=== PATIENT | female | born 1965 | race Caucasian/White ===

== ENCOUNTER 2017-10-13 17:02 | Inpatient (IN) | payer MEDICAID, SELFPAY ==
[2017-10-13] VITALS (24 sets, daily range): BP systolic 115–225; BP diastolic 46–183; PULSE 76–94; RESP 16–27; TEMP 37.2; O2SAT 90–98; BMI 31.6; BMI 45.5
--- NOTE | 2017-10-13 17:16 | RAD_ITS ---
STUDY: X-RAY CHEST REASON FOR EXAM: Female, 51 years old. Shortness breast. TECHNIQUE: Single AP portable view of the chest. COMPARISON: None. FINDINGS: The lungs are well-expanded. There is diffuse perihilar interstitial prominence most marked in the lower lobes. There is no demonstrated pleural abnormality. The heart appears borderline enlarged. Normal mediastinum and erickson. Question mild central vascular prominence. Normal visualized aortic arch and descending thoracic aorta. The thoracic spine is obscured by the mediastinum. Normal visualized ribs, clavicles, and shoulders. There is no demonstrated abnormality of the visualized soft tissue structures of the upper abdomen. RAD/Chest 1 View (Portable) IMPRESSION: Mild vascular congestion. Electronically Signed: Rosalino Anguiano DO at 17:37 EDT Tel [phone], Service support ,
--- NOTE | 2017-10-13 17:16 | EKG12_ITS ---
Test Reason : SOB Blood Pressure : / mmHG Vent. Rate : 087 BPM Atrial Rate : 087 BPM P-R Int : 128 ms QRS Dur : 092 ms QT Int : 370 ms P-R-T Axes : 055 -03 115 degrees QTc Int : 445 ms Normal sinus rhythm Left ventricular hypertrophy with repolarization abnormality Abnormal ECG Confirmed by MASHA WHITE ([id number]), technical writer and editor AMANDA ABREU ([id number]) on 10/18/2017 10:42:48 AM Referred By: Ramon Rahman Confirmed By:MASHA WHITE
[2017-10-13 17:45] LABS: Absolute Lymphocyte Count 3.38 X10^3/ul (0.83-4.51); Absolute Neutrophil Count 4.5 X10^3/uL (2.0-7.7); Basophil# 0.03 X10^3/uL; Basophil% 0.3 % (0-1); Eosinophil# 0.26 X10^3/uL; Eosinophils% 2.9 % (0-5); Hematocrit 44.4 % (37-47); Hemoglobin 14.3 g/dl (12.0-15.0); Lymphocyte # 3.38 X10^3/ul (4.0); Lymphocyte % 37.6 % (19-41); Mean Corp Hgb Conc 32.2 g/gl (32-36); Mean Corpuscular Hgb 30.1 pg (27.0-32.0); Mean Corpuscular Volume 93.5 fL (81-99); Mean Platelet Vol. 9.6 fl (6.2-12.0); Monocyte# 0.78 X10^3/uL; Monocyte% 8.7 % (0-10); Neutrophil # 4.53 X10^3/uL (2.7-7.7); Neutrophil % 50.4 % (47-70); Platelet Count 195 K/mm3 (150-450); RBC Distribution Width CV 13.8 % (11.6-14.6); RBC Distribution Width SD 46.8 fl (35.1-43.9); Red Blood Count 4.75 M/mm3 (4.2-5.4)
[2017-10-13 17:46] LABS: POSITIVE COUNT NO; POSITIVE DIFFERENTIAL NO; POSITIVE MORPHOLOGY NO
[2017-10-13] MEDS: Aspirin 81 MG TAB.CHEW 324 MG PO (17:58)
--- NOTE | 2017-10-13 18:01 | PCM.CONS.C ---
Reason for Consult Date of Consultation: 10/13/17 Reason for Consultation: Evaluation of abnormal EKG and shortness of breath. History of Present Illness: The patient is a 51 year old F with no previous cardiac history other than hypertension who says that she has been getting progressively and increasingly short of breath over the last few weeks. She has not followed up with any physician recently. She says that she was taken off on her blood pressure medications by her physician in [place]. Today while trying to walk she got more short of breath and called emergency medical squad. At that time they got to her have blood pressure was noted to be in excess of 240 mmHg systolic. She was brought to the emergency room an EKG was done which demonstrated some T-wave inversions cardiology was called from the emergency room to render an opinion on the EKG. She denies any chest pain or paroxysmal nocturnal dyspnea or pedal edema she does have shortness of breath which she has ascribed to asthma. She however is not on any inhalers. She has no neck arm or jaw discomfort to suggest angina. [] Past Medical History Allergies/Adverse Reactions: Allergies codeine Allergy (Verified 10/13/17 17:58) Chest tightness Penicillins [PCN] Allergy (Verified 10/13/17 17:58) Chest tightness Surgical History: appendectomy, hysterectomy - partial Lives: Alone Smoking Status: Current every day smoker Alcohol: None Drugs: None Review of Systems - Review of Systems General: Denies: Fever, Night Sweats, Fatigue Cardiovascular: Reports: Shortness of Breath, Shortness of Breath at Rest, Shortness of Breath with Exertion. Denies: Chest Discomfort, Orthopnea, PND, Peripheral Edema, Palpitations, Lightheadedness, Dizziness, Near Syncope, Syncope Respiratory: Reports: Shortness of Breath. Denies: Cough, Sputum Production, Hemoptysis Gastrointestinal: Denies: Hematemesis, Hematochezia, Melena Genitourinary: Denies: Dysuria, Hematuria Skin: Denies: Rash Psychiatric: Reports: Anxiety Subjectve: Middle aged lady in no distress but mildly labored breathing Objective: Vital Signs Temp Pulse Resp BP Pulse Ox 99.0 F 94 18 218/122 H 98 10/13/17 17:45 10/13/17 17:45 10/13/17 17:45 10/13/17 17:45 10/13/17 17:45 Oxygen Delivery Method Room Air Weight: 208 lb Body Mass Index (BMI) 31.6 General: Awake, Alert, Oriented x 3 HEENT: PERRL, EOMI, Sclera Non Icteric Neck: Supple, Good ROM, No Lymph Node Enlargement Lungs: Inspiratory Wheezes - Nolan Cardiovascular: Regular Rhythm, Normal S1, Normal S2, No Murmurs, No Rubs, No Gallops, Positive S4 Vascular: No Carotid Bruits, Normal Femoral Pulses, Normal Radial Pulses, Normal Dorsalis Pedal Pulse, Normal Posterior Tibial Pulses Abdomen: Bowel Sounds Present, Soft, Non Tender, No HSM, No Organomegaly Extremities: No Cyanosis, No Clubbing, No edema Neurological: No Focal Motor or Sensory Deficit Psych/Mental Status: Appropriate 10/13/17 17:36: WBC 9.0, RBC 4.75, Hgb 14.3, Hct 44.4, MCV 93.5, MCH 30.1, MCHC 32.2, RDW 13.8, RDW Differential 46.8 H, Plt Count 195, MPV 9.6, Immature Gran % (Auto) 0.100, Neut % (Auto) 50.4, Lymph % (Auto) 37.6, [place] % (Auto) 8.7, Eos % (Auto) 2.9, Baso % (Auto) 0.3, Absolute Neuts (auto) 4.5, Total Counted Not Reportable Rhythm: EKG: Normal sinus rhythm with evidence of left ventricular hypertrophy and repolarization changes with T-wave inversion noted in 1 and aVL Assessment/Plan 1. Hypertensive urgency. The patient presents with marked shortness of breath and marked hypertension with EKG changes consistent with repolarization. My concern is that this is secondary to long-standing untreated high blood pressure. She may also be developing mild heart failure with respect to the above. My recommendations will be as follows: Intravenous nitroglycerin for preload and afterload reduction Intravenous Lasix Will start on ISABELLA inhibitor with lisinopril 20 mg twice a day Obtain an echocardiogram in a.m. to assess left ventricular function Obtain serial cardiac enzymes to exclude myocardial ischemia Obtain natruretic peptide level Depending on the findings of the above further recommendations will be made. She certainly may need additional blood pressure medications for optimal blood pressure control. Would need to further risk stratify her with a lipid profile in a.m.
[2017-10-13 18:08] LABS: Anion Gap 7 (5-15); BUN 16 mg/dL (7-18); BUN/Creat Ratio 14.5 RATIO (10-20); Chloride 106 mmol/L (98-107); EST Glomerular Filtration Rate 56 mL/min (>60); Est Glom Filt Rate - Afr Amer 68 mL/min (>60); Estimated Creatinine Clearance 62.41 ml/min; Glucose 164 mg/dL (74-106); Potassium 3.8 mmol/L (3.5-5.1); Sodium Level 136 mmol/L (136-145)
--- NOTE | 2017-10-13 18:08 | CON.PCM_ITS ---
Reason for Consult Date of Consultation: 10/13/17 Reason for Consultation: Evaluation of abnormal EKG and shortness of breath. History of Present Illness: The patient is a 51 year old F with no previous cardiac history other than hypertension who says that she has been getting progressively and increasingly short of breath over the last few weeks. She has not followed up with any physician recently. She says that she was taken off on her blood pressure medications by her physician in [place]. Today while trying to walk she got more short of breath and called emergency medical squad. At that time they got to her have blood pressure was noted to be in excess of 240 mmHg systolic. She was brought to the emergency room an EKG was done which demonstrated some T- wave inversions cardiology was called from the emergency room to render an opinion on the EKG. She denies any chest pain or paroxysmal nocturnal dyspnea or pedal edema she does have shortness of breath which she has ascribed to asthma. She however is not on any inhalers. She has no neck arm or jaw discomfort to suggest angina. [] Past Medical History Allergies/Adverse Reactions: Allergies codeine Allergy (Verified 10/13/17 17:58) Chest tightness Penicillins [PCN] Allergy (Verified 10/13/17 17:58) Chest tightness Surgical History: appendectomy, hysterectomy - partial Lives: Alone Smoking Status: Current every day smoker Alcohol: None Drugs: None Review of Systems - Review of Systems General: Denies: Fever, Night Sweats, Fatigue Cardiovascular: Reports: Shortness of Breath, Shortness of Breath at Rest, Shortness of Breath with Exertion. Denies: Chest Discomfort, Orthopnea, PND, Peripheral Edema, Palpitations, Lightheadedness, Dizziness, Near Syncope, Syncope Respiratory: Reports: Shortness of Breath. Denies: Cough, Sputum Production, Hemoptysis Gastrointestinal: Denies: Hematemesis, Hematochezia, Melena Genitourinary: Denies: Dysuria, Hematuria Skin: Denies: Rash Psychiatric: Reports: Anxiety Subjectve: Middle aged lady in no distress but mildly labored breathing Objective: Vital Signs Temp Pulse Resp BP Pulse Ox 99.0 F 94 18 218/122 H 98 10/13/17 17:45 10/13/17 17:45 10/13/17 17:45 10/13/17 17:45 10/13/17 17:45 Oxygen Delivery Method Room Air Weight: 208 lb Body Mass Index (BMI) 31.6 General: Awake, Alert, Oriented x 3 HEENT: PERRL, EOMI, Sclera Non Icteric Neck: Supple, Good ROM, No Lymph Node Enlargement Lungs: Inspiratory Wheezes - Nolan Cardiovascular: Regular Rhythm, Normal S1, Normal S2, No Murmurs, No Rubs, No Gallops, Positive S4 Vascular: No Carotid Bruits, Normal Femoral Pulses, Normal Radial Pulses, Normal Dorsalis Pedal Pulse, Normal Posterior Tibial Pulses Abdomen: Bowel Sounds Present, Soft, Non Tender, No HSM, No Organomegaly Extremities: No Cyanosis, No Clubbing, No edema Neurological: No Focal Motor or Sensory Deficit Psych/Mental Status: Appropriate 10/13/17 17:36: WBC 9.0, RBC 4.75, Hgb 14.3, Hct 44.4, MCV 93.5, MCH 30.1, MCHC 32.2, RDW 13.8, RDW Differential 46.8 H, Plt Count 195, MPV 9.6, Immature Gran % (Auto) 0.100, Neut % (Auto) 50.4, Lymph % (Auto) 37.6, [place] % (Auto) 8.7, Eos % (Auto) 2.9, Baso % (Auto) 0.3, Absolute Neuts (auto) 4.5, Total Counted Not Reportable Rhythm: EKG: Normal sinus rhythm with evidence of left ventricular hypertrophy and repolarization changes with T-wave inversion noted in 1 and aVL Assessment/Plan 1. Hypertensive urgency. The patient presents with marked shortness of breath and marked hypertension with EKG changes consistent with repolarization. My concern is that this is secondary to long-standing untreated high blood pressure. She may also be developing mild heart failure with respect to the above. My recommendations will be as follows: * Intravenous nitroglycerin for preload and afterload reduction * Intravenous Lasix * Will start on ISABELLA inhibitor with lisinopril 20 mg twice a day * Obtain an echocardiogram in a.m. to assess left ventricular function * Obtain serial cardiac enzymes to exclude myocardial ischemia * Obtain natruretic peptide level * Depending on the findings of the above further recommendations will be made. She certainly may need additional blood pressure medications for optimal blood pressure control. * Would need to further risk stratify her with a lipid profile in a.m.
--- NOTE | 2017-10-13 18:10 | ECHOD_ITS ---
Reason For Study: SOB Procedure This was a 2D Doppler, Color Flow transthoracic echocardiogram. Exam performed portable in ICU/CCU. Left Ventricle Moderate concentric left ventricular hypertrophy. The estimated ejection fraction is 65 %. Stage 1 diastolic dysfunction. No regional wall motion abnormalities noted. Right Ventricle Mildly dilated right ventricle. Normal systolic function. Atria Normal left atrium. Normal right atrium. Probable secondum atrial septal defect. Mitral Valve The mitral valve is structurally normal. No prolapse or stenosis seen. Tricuspid Valve Normal tricuspid valve. Mild (1+) tricuspid valve insufficiency. Right ventricular systolic pressure estimated to be 53 mmHg. Moderate pulmonary hypertension. Aortic Valve Trisinus/trileaflet aortic valve. Mild diffuse aortic valve thickening. Mild (1+) aortic valve insufficiency. Pulmonic Valve Normal pulmonic valve. Great Vessels Normal aortic root. Normal arch. Normal inferior vena cava. Inferior vena cava collapse with sniff. Pericardium/Pleural No pericardial effusion. MMode/2D Measurements & Calculations LVIDd: 4.3 cm IVSd: 1.6 cm Ao root diam: 2.9 cm LVIDs: 2.9 cm LVPWd: 1.5 cm LA dimension: 4.3 cm RVDd: 3.8 cm FS: 33.3 % LAV(MOD-bp): 69.4 ml LA A4 area: 20.6 cm2 RA A4 area: 16.8 cm2 LAV(MOD-bp) Indexed: 34.9 ml/m2 LAV(MOD-sp2): 77.2 ml LAV(MOD-sp4): 61.6 ml Doppler Measurements & Calculations MV E max dwight: 78.6 cm/sec Lat Peak E' Dwight: 5.5 cm/sec Med Peak E' Dwight: 3.7 cm/sec MV A max dwight: 60.1 cm/sec E/E' lat: 14.3 E/E' med: 21.0 MV E/A: 1.3 Ao V2 max: 174.5 cm/sec AI max dwight: 444.1 cm/sec LV V1 max: 138.8 cm/sec Ao max P.2 mmHg AI max P.9 mmHg LV V1 max P.7 mmHg AI dec slope: 246.4 cm/sec2 AI P1/2t: 527.8 msec PA V2 max: 182.8 cm/sec TR max dwight: 346.8 cm/sec TR max P.1 mmHg Interpretation Summary Moderate concentric left ventricular hypertrophy. The estimated ejection fraction is 65 %. Stage 1 diastolic dysfunction. Mildly dilated right ventricle. Probable secondum atrial septal defect with L to R shunt. Mild (1+) tricuspid valve insufficiency. Right ventricular systolic pressure estimated to be 53 mmHg. Moderate pulmonary hypertension. Mild (1+) aortic valve insufficiency. There is no comparison study available. Ordering Physician: Romain Espinosa Referring Physician: Ramon Rahman Performed By: Kerry Bejarano RDCS
--- NOTE | 2017-10-13 18:29 | ED.VISSUMM ---
- ER Visit Summary Date of Service: 10/13/17 Chief Complaint: Shortness of breath with activity History of Present Illness: The patient is a 51 F who has no past medical history on no medication presents with shortness of breath. She had increased shortness of the past 1-2 weeks. Upon further questions determined that she has chest tightness with activity that goes away after 5-10 minutes of rest. She states she has not seen a doctor in 1 month. She does smoke. She does not know how much. She rolls her own cigarettes. She denies fever, chills night sweats. Eyes ocular, visual or auditory symptoms. She denies nausea, vomiting diarrhea. She denies dysuria, frequency, urgency or hematuria. She denies any back pain. She denies symptoms of claudication. She denies any neurologic symptoms. She does report polydipsia and polyuria for the past several weeks. She denies blurred vision. Patient reports midsternal chest discomfort with radiation to both shoulders with dyspnea that is alleviated after she stops her activity. She reports she has had symptoms for 1-2 weeks. Physical Examination: Patient appears slightly tachypneic. Blood pressures 221/121. Head is atraumatic normocephalic. Pupils are equal round reactive. Extraocular muscles are intact. TMs are pearly white with landmarks noted. Nares patent with no drainage. Posterior pharynx without erythema or exudate. Uvula is midline. There is no dysphonia or dysphasia. Trachea is midline. There is no stridor with auscultation of the neck. Heart is regular without murmur, gallop or rub. S1 and S2 are normal. Lungs are clear to auscultation with good movement of air bilaterally. Abdomen soft flabby nontender. There is no asymmetry, swelling, discoloration, leg vein distention, palpable cords or tenderness along the distribution of the deep venous system. Test Results: EKG reveals a sinus rhythm with LVH and strain pattern. Concern for possible ischemia. Portable chest x-ray reveals cardiomegaly and mild congestion. CBC is normal. Electro panels marked for a creatinine of 1.10 and glucose of 164. Troponin is 0.066. Emergency Department Course and Treatment: To evaluate patient's exertional dyspnea and chest pain EKG, chest x-ray appropriate blood work was obtained. This may be secondary to hypertension. After discussion/consultation with Dr. Espinosa she was placed on a nitroglycerin drip. He requested no anticoagulation with elevated blood pressure. He did receive aspirin. Treatment Plan: Continue care and evaluation Disposition: PCU stepdown Impression: 1. Exertional chest pain and dyspnea 2. Hypertensive urgency 3. Cardiomegaly and mild CHF new finding 4. Hyperglycemia, new onset diabetes This note was generated with [employer] dictation software. It may contain incorrect words, spelling, and punctuation that were not noted in review of the chart prior to signing ED Disposition - Plan for ED Patient: Chief Complaint: Shortness of Breath Referrals: Care Physician,No Primary [Primary Care Provider] -
--- NOTE | 2017-10-13 18:35 | ED.DCSUM_ITS ---
- ER Visit Summary Date of Service: 10/13/17 Chief Complaint: Shortness of breath with activity History of Present Illness: The patient is a 51 F who has no past medical history on no medication presents with shortness of breath. She had increased shortness of the past 1-2 weeks. Upon further questions determined that she has chest tightness with activity that goes away after 5-10 minutes of rest. She states she has not seen a doctor in 1 month. She does smoke. She does not know how much. She rolls her own cigarettes. She denies fever, chills night sweats. Eyes ocular, visual or auditory symptoms. She denies nausea, vomiting diarrhea. She denies dysuria, frequency , urgency or hematuria. She denies any back pain. She denies symptoms of claudication. She denies any neurologic symptoms. She does report polydipsia and polyuria for the past several weeks. She denies blurred vision. Patient reports midsternal chest discomfort with radiation to both shoulders with dyspnea that is alleviated after she stops her activity. She reports she has had symptoms for 1-2 weeks. Physical Examination: Patient appears slightly tachypneic. Blood pressures 221/ 121. Head is atraumatic normocephalic. Pupils are equal round reactive. Extraocular muscles are intact. TMs are pearly white with landmarks noted. Nares patent with no drainage. Posterior pharynx without erythema or exudate. Uvula is midline. There is no dysphonia or dysphasia. Trachea is midline. There is no stridor with auscultation of the neck. Heart is regular without murmur, gallop or rub. S1 and S2 are normal. Lungs are clear to auscultation with good movement of air bilaterally. Abdomen soft flabby nontender. There is no asymmetry, swelling, discoloration, leg vein distention, palpable cords or tenderness along the distribution of the deep venous system. Test Results: EKG reveals a sinus rhythm with LVH and strain pattern. Concern for possible ischemia. Portable chest x-ray reveals cardiomegaly and mild congestion. CBC is normal. Electro panels marked for a creatinine of 1.10 and glucose of 164. Troponin is 0.066. Emergency Department Course and Treatment: To evaluate patient's exertional dyspnea and chest pain EKG, chest x-ray appropriate blood work was obtained. This may be secondary to hypertension. After discussion/consultation with Dr. Espinosa she was placed on a nitroglycerin drip. He requested no anticoagulation with elevated blood pressure. He did receive aspirin. Treatment Plan: Continue care and evaluation Disposition: PCU stepdown Impression: 1. Exertional chest pain and dyspnea 2. Hypertensive urgency 3. Cardiomegaly and mild CHF new finding 4. Hyperglycemia, new onset diabetes This note was generated with [employer] dictation software. It may contain incorrect words, spelling, and punctuation that were not noted in review of the chart prior to signing ED Disposition - Plan for ED Patient: Chief Complaint: Shortness of Breath Referrals: Care Physician,No Primary [Primary Care Provider] -
[2017-10-13] MEDS: Enalaprilat 1.25 MG/ML Vial 0.625 MG IV (19:59)
[2017-10-13] MEDS: Furosemide 20 MG/2 ML VIAL IV (19:59)
--- NOTE | 2017-10-13 20:41 | EKG12_ITS ---
Test Reason : HTN Blood Pressure : / mmHG Vent. Rate : 077 BPM Atrial Rate : 077 BPM P-R Int : 136 ms QRS Dur : 080 ms QT Int : 396 ms P-R-T Axes : 059 022 114 degrees QTc Int : 448 ms Normal sinus rhythm Septal infarct , age undetermined ST & T wave abnormality, consider lateral ischemia Abnormal ECG No previous ECGs available Confirmed by MASHA WHITE ([id number]), features editor AMANDA ABREU ([id number]) on 10/18/2017 3:04:46 PM Referred By: Ramon Rahman Confirmed By:MASHA WHITE
[2017-10-13 22:10] LABS: M R Staph aureus DNA By PCR Negative (Negative); Probe Check PASS; Specimen Processing Control PASS
[2017-10-13] MEDS: Zolpidem Tartrate 5 MG Tablet PO (22:13)
[2017-10-13] MEDS: Heparin Injection (Vial) 5,000 UNIT/ML VIAL 5000 UNIT SC (22:14)
[2017-10-13] MEDS: Lisinopril 20 MG Tablet PO (22:14)
--- NOTE | 2017-10-13 22:28 | HP.PCM_ITS ---
Problem List (1) Chest pain Status: Acute Qualifiers: Chest pain type: chest pain due to myocardial ischemia Ischemic chest pain type: unspecified angina pectoris type Qualified Code(s): I25.9 - Chronic ischemic heart disease, unspecified (2) Hypertensive emergency Status: Acute History of Present Illness Date of Admission: 10/13/17 Chief Complaint: Chest pain. Patient is a 51 yo wf with no known medical problems in the past, presents with exertional chest pain with dyspnea for about 1 week, gradually worsening. She has chest tightness with mild exertion, that relieved by rest. The pain does not radiate, but she has dyspnea. She denied of any diaphoresis, dizziness, nausea, or palpitations. She has no recent medical follow up, but she denied of any previous problems with any medical problems. However, she is a poor historian. Her BP was 221/121 on arrival. EKG showed LVH with early repolarization. CXR showed mild edema and cardiomegaly. Troponin was elevated slightly to 0.066. Past Medical History Allergies codeine Allergy (Verified 10/13/17 20:33) Chest tightness Penicillins [PCN] Allergy (Verified 10/13/17 20:33) Chest tightness Home Medications: Ambulatory Orders Medication Instructions Recorded Albuterol Inhaler [Ventolin Hfa 1 puff INHALATION Q4H PRN PRN 10/13/17 (SP)] Surgical History: appendectomy, hysterectomy - partial Lives: Alone Smoking Status: Current every day smoker Tobacco Use: Cigarettes Alcohol: None Drugs: None - *Family History Maternal History Items: Diabetes Paternal History Items: Diabetes Review of Systems Comment: ROS: In general: Patient has been in good health, denied of any constitutional symptoms, such as weight loss, or gain, fever, chills, or night sweats. Patient denied of any profound fatigue. HEENT: Unremarkable. Patient denied of any dizziness, chronic headache, blurred vision, double vision, dry mouth, or nasal congestion. CV/respiratory: See HPI. GI: Patient denied any abdominal pain, nausea, vomiting, diarrhea, constipation, melena, or hematochezia. : Patient denied any significant urinary symptoms. Neurology: Unremarkable. There is no history of seizure as an adult. Psychological: Unremarkable. Endocrine: Unremarkable. Musculoskeletal: Unremarkable. VTE Information - Inpt Only VTE Present on Admission: No VTE Mechan Device Prophylaxis: Thigh High ALYSE Hose VTE Pharm Prophylaxis ordered?: Yes Patient Problems: Active and Suspected Problems Chest pain (Acute) Hypertensive emergency (Acute) Objective: In general, patient is a well-nourished and developed adult. HEENT: Head is atraumatic, and normocephalic. Pupils are equal, round, and reactive to light and accommodations. Neck is supple. There is no lymphadenopathy, or thyromegaly. Oral mucosa is pink, and moist. There are no lesions. Heart: Auscultation is normal with regular rhythm and rate. There is no extra heart sounds, or murmurs. S1 and S2 are present. Point of maximal impulse is not displaced. Lungs: Lungs are clear to auscultation bilaterally. There is no wheezing, or crackles. Abdomen: Abdominal wall is non-tender, and non-distended. There is no palpable mass or organomegaly. Normoactive bowel sounds are present. Extremities: There is no cyanosis or clubbing. Peripheral pulses are palpable. There is no edema. Skin: There are no any skin discoloration or lesions. Neurological: CN II - XII are intact. Sensory and motor functions are grossly normal with no obvious deficit. Cerebellar functions are within normal range. Gait was not tested. - Physical Exam Vital Signs Temp Pulse Resp BP Pulse Ox 99.0 F 83 17 204/99 H 93 10/13/17 20:25 10/13/17 22:05 10/13/17 22:05 10/13/17 22:05 10/13/17 22:05 Oxygen Delivery Method Room Air Weight: 188 lb 7.924 oz Body Mass Index (BMI) 35.6 Laboratory Tests Past 24 Hrs 10/13/17 10/13/17 20:40 21:05 Troponin I 0.085 H MRSA (PCR) Negative Diagnostic Data Chest X-Ray 10/13/17 17:16 IMPRESSION: Mild vascular congestion. Electronically Signed: Rosalino Anguiano DO at 17:37 EDT Tel [phone], Service support , Assessment/Plan All Active Problems Chest pain (Acute) Hypertensive emergency (Acute) Patient is a 51 yo wf with no known medical problems in the past, presents with exertional chest pain with dyspnea for about 1 week, gradually worsening. She has chest tightness with mild exertion, that relieved by rest. The pain does not radiate, but she has dyspnea. She denied of any diaphoresis, dizziness, nausea, or palpitations. She has no recent medical follow up, but she denied of any previous problems with any medical problems. Her BP was 221/121 on arrival. EKG showed LVH with early repolarization. CXR showed mild edema and cardiomegaly. Troponin was elevated slightly to 0.066. #1 Hypertensive emergency. She appears to have end-organ involvement with unstable angina and CHF. She likely has prolonged untreated HTN. Trend troponin. Cardiology was consulted. Started on NTG drip. Lasix given. Echo in AM. #2 Elevated glucose. Insulin sliding scale added. Check Hgb A1c. #3 Elevated troponin. See above. VTE ppx: Heparin SQ. GI ppx: PPI po. She is full code. Disposition: TBD. She is from [facility], and she is able to stay until 10/20, but she has no home to go after that date. Code Visit Inpatient E&M: 45419 Init Hosp L3
[2017-10-13 23:02] LABS: BNP,B-Type NATRIURETIC PEPTIDE 196.2 pg/mL (0-100)
[2017-10-13 23:36] LABS: Bedside Glucose 247 mg/dL (70-110)
[2017-10-14] VITALS (49 sets, daily range): BP systolic 107–178; BP diastolic 46–94; PULSE 63–87; RESP 14–24; TEMP 36.8–37.6; O2SAT 88–98
[2017-10-14] MEDS: Heparin Injection (Vial) 5,000 UNIT/ML VIAL 5000 UNIT SC ×2 (06:00→14:56)
[2017-10-14 06:36] LABS: Hematocrit 40.6 % (37-47); Hemoglobin 13.4 g/dl (12.0-15.0); Mean Corpuscular Hgb 30.7 pg (27.0-32.0); Mean Corpuscular Volume 93.1 fL (81-99); Mean Platelet Vol. 9.8 fl (6.2-12.0); Platelet Count 205 K/mm3 (150-450); RBC Distribution Width CV 13.7 % (11.6-14.6); RBC Distribution Width SD 45.5 fl (35.1-43.9); Red Blood Count 4.36 M/mm3 (4.2-5.4); White Blood Count 9.7 K/mm3 (4.4-11.0)
[2017-10-14 06:38] LABS: Scan Indicated on CBC? Y/N NO
[2017-10-14] MEDS: amLODIPine 10 MG Tablet PO (06:47)
[2017-10-14] MEDS: Ipratropium/Albuterol Sulfate 3 ML AMPUL.NEB INHALATION ×3 (06:54→14:52)
[2017-10-14 07:00] LABS: Bedside Glucose 178 mg/dL (70-110)
[2017-10-14 07:02] LABS: AST(SGOT) 43 U/L (15-37); Alanine Aminotransfer ALT/SGPT 45 U/L (13-56); Albumin, Serum 2.9 g/dL (3.2-5.0); Alkaline Phosphatase 50 U/L (45-117); Anion Gap 9 (5-15); BUN 16 mg/dL (7-18); BUN/Creat Ratio 15.5 RATIO (10-20); Bilirubin, Direct 0.15 mg/dL (0.00-0.30); Calcium,Total 7.7 mg/dL (8.5-10.1); Chloride 104 mmol/L (98-107); Cholesterol 93 mg/dL (200); Creatinine, Serum 1.03 mg/dL (0.55-1.02); EST Glomerular Filtration Rate 60 mL/min (>60); Est Glom Filt Rate - Afr Amer 73 mL/min (>60); Estimated Creatinine Clearance 49.31 ml/min; Globulin 3.8 g/dL (2.2-4.2); Glucose 170 mg/dL (74-106); High Density Lipoprotein 22 mg/dL; Protein, Total 6.7 g/dL (6.4-8.2); Sodium Level 139 mmol/L (136-145); Thyroid Stim Hormone (TSH) 0.75 uIU/mL (0.358-3.74); Triglycerides 113 mg/dL; Very Low Density Lipoprotein 23 mg/dL (5-40)
--- NOTE | 2017-10-14 07:48 | PCM.PN.CARD ---
Subjectve: Patient seen and evaluated. Appears to be breathing better this morning. Objective: Vital Signs Temp Pulse Resp BP Pulse Ox 99.6 F H 82 20 H 140/92 H 93 10/14/17 07:00 10/14/17 07:00 10/14/17 07:00 10/14/17 07:00 10/14/17 07:00 Oxygen Flow Rate (L/min) 2 Oxygen Delivery Method Room Air Weight: 239 lb 10.279 oz Body Mass Index (BMI) 45.5 Intake and Output for Last 24 Hours 10/12/17 10/13/17 10/14/17 23:59 23:59 23:59 Intake Total 432 / 432 220 / 220 Output Total 1000 / 1000 300 / 300 Balance -568 / -568 -80 / -80 General: Awake, Alert, Oriented x 3 HEENT: PERRL, EOMI, Sclera Non Icteric Neck: Supple, Good ROM, No Lymph Node Enlargement Lungs: Clear to auscultation Cardiovascular: Regular Rhythm, Normal S1, Normal S2, No Murmurs, No Rubs, No Gallops Vascular: No Carotid Bruits, Normal Femoral Pulses, Normal Radial Pulses, Normal Dorsalis Pedal Pulse, Normal Posterior Tibial Pulses Abdomen: Bowel Sounds Present, Soft, Non Tender, No HSM, No Organomegaly Extremities: No Cyanosis, No Clubbing, No edema Neurological: No Focal Motor or Sensory Deficit 10/13/17 21:05: Troponin I 0.085 H 10/13/17 22:20: B-Natriuretic Peptide 196.2 H 10/13/17 23:45: Troponin I 0.078 H 10/14/17 06:05: Sodium 139, Potassium 4.0, Chloride 104, Carbon Dioxide 26.0, Anion Gap 9, BUN 16, Creatinine 1.03 H, Est GFR (MDRD) Af Amer 73, Est GFR (MDRD) Non-Af 60, BUN/Creatinine Ratio 15.5, Glucose 170 H, Calcium 7.7 L, Total Bilirubin 0.90, Direct Bilirubin 0.15, Triglycerides 113, Cholesterol 93, LDL Cholesterol 48, VLDL Cholesterol 23, HDL Cholesterol 22 L 10/14/17 06:05: WBC 9.7, RBC 4.36, Hgb 13.4, Hct 40.6, MCV 93.1, MCH 30.7, MCHC 33.0, RDW 13.7, RDW Differential 45.5 H, Plt Count 205, MPV 9.8 Rhythm: EKG: ECHO: Stress Test: Cardiac Cath: PCI: CT Surgery: Holter monitor: EPS: PPM: CXR: Chest CT Scan: Medical Necessity - Tobacco Use Smoking Status: Current every day smoker Tobacco Use: Cigarettes Assessment/Plan 1. Hypertensive urgency. The patient presents with marked shortness of breath and marked hypertension with EKG changes consistent with repolarization. My concern is that this is secondary to long-standing untreated high blood pressure. My recommendations will be as follows: Intravenous nitroglycerin for preload and afterload reduction and transitioned to oral agents Start hydrochlorothiazide Will start on ISABELLA inhibitor with lisinopril 20 mg twice a day Obtain an echocardiogram in a.m. to assess left ventricular function serial cardiac enzymes done and to indicate some level of myocardial necrosis but not suggestive of unstable angina Her blood pressure appears to be better this morning along with her EKG changes. She is overall feeling better today. Further decisions will be made based on the results of the echocardiogram as well as her response to the oral blood pressure medications.
--- NOTE | 2017-10-14 07:51 | PN.CARD_ITS ---
Subjectve: Patient seen and evaluated. Appears to be breathing better this morning. Objective: Vital Signs Temp Pulse Resp BP Pulse Ox 99.6 F H 82 20 H 140/92 H 93 10/14/17 07:00 10/14/17 07:00 10/14/17 07:00 10/14/17 07:00 10/14/17 07:00 Oxygen Flow Rate (L/min) 2 Oxygen Delivery Method Room Air Weight: 239 lb 10.279 oz Body Mass Index (BMI) 45.5 Intake and Output for Last 24 Hours 10/12/17 10/13/17 10/14/17 23:59 23:59 23:59 Intake Total 432 / 432 220 / 220 Output Total 1000 / 1000 300 / 300 Balance -568 / -568 -80 / -80 General: Awake, Alert, Oriented x 3 HEENT: PERRL, EOMI, Sclera Non Icteric Neck: Supple, Good ROM, No Lymph Node Enlargement Lungs: Clear to auscultation Cardiovascular: Regular Rhythm, Normal S1, Normal S2, No Murmurs, No Rubs, No Gallops Vascular: No Carotid Bruits, Normal Femoral Pulses, Normal Radial Pulses, Normal Dorsalis Pedal Pulse, Normal Posterior Tibial Pulses Abdomen: Bowel Sounds Present, Soft, Non Tender, No HSM, No Organomegaly Extremities: No Cyanosis, No Clubbing, No edema Neurological: No Focal Motor or Sensory Deficit 10/13/17 21:05: Troponin I 0.085 H 10/13/17 22:20: B-Natriuretic Peptide 196.2 H 10/13/17 23:45: Troponin I 0.078 H 10/14/17 06:05: Sodium 139, Potassium 4.0, Chloride 104, Carbon Dioxide 26.0, Anion Gap 9, BUN 16, Creatinine 1.03 H, Est GFR (MDRD) Af Amer 73, Est GFR (MDRD ) Non-Af 60, BUN/Creatinine Ratio 15.5, Glucose 170 H, Calcium 7.7 L, Total Bilirubin 0.90, Direct Bilirubin 0.15, Triglycerides 113, Cholesterol 93, LDL Cholesterol 48, VLDL Cholesterol 23, HDL Cholesterol 22 L 10/14/17 06:05: WBC 9.7, RBC 4.36, Hgb 13.4, Hct 40.6, MCV 93.1, MCH 30.7, MCHC 33.0, RDW 13.7, RDW Differential 45.5 H, Plt Count 205, MPV 9.8 Rhythm: EKG: ECHO: Stress Test: Cardiac Cath: PCI: CT Surgery: Holter monitor: EPS: PPM: CXR: Chest CT Scan: Medical Necessity - Tobacco Use Smoking Status: Current every day smoker Tobacco Use: Cigarettes Assessment/Plan 1. Hypertensive urgency. The patient presents with marked shortness of breath and marked hypertension with EKG changes consistent with repolarization. My concern is that this is secondary to long-standing untreated high blood pressure. My recommendations will be as follows: * Intravenous nitroglycerin for preload and afterload reduction and transitioned to oral agents * Start hydrochlorothiazide * Will start on ISABELLA inhibitor with lisinopril 20 mg twice a day * Obtain an echocardiogram in a.m. to assess left ventricular function * serial cardiac enzymes done and to indicate some level of myocardial necrosis but not suggestive of unstable angina * Her blood pressure appears to be better this morning along with her EKG changes. She is overall feeling better today. Further decisions will be made based on the results of the echocardiogram as well as her response to the oral blood pressure medications.
[2017-10-14 08:36] LABS: BNP,B-Type NATRIURETIC PEPTIDE 137.4 pg/mL (0-100)
[2017-10-14] MEDS: Aspirin E.C. 81 MG Tablet PO (09:04)
[2017-10-14] MEDS: Pantoprazole Sodium 20 MG Tablet PO (09:05)
[2017-10-14] MEDS: Metoprolol Tartrate 50 MG Tablet PO (09:05)
[2017-10-14] MEDS: Insulin Lispro 100 UNIT/ML INSULN.PEN SQ ×2 (09:13→12:49)
[2017-10-14] MEDS: hydroCHLOROthiazide 25 MG Tablet PO (10:14)
[2017-10-14] MEDS: Lisinopril 20 MG Tablet PO (10:52)
[2017-10-14] MEDS: 0.9% NaCl Peripheral Flush Adult/Peds IV (11:37)
[2017-10-14 12:10] LABS: Bedside Glucose 259 mg/dL (70-110)
--- NOTE | 2017-10-14 13:53 | CASEMGMT ---
Social Work RN notified SW that pt currently has [facility] Medicaid and is living at [facility]. YANI met with the pt. She had previously lived in [facility] and moved to [facility]. Pt is unable to state when she moved to [place] but states she moved back a couple weeks ago because she could not find housing in [place]. Pt spouse is currently in penitentiary, pt mother lives in [place] and brother lives in [place]. Pt states she does not have a very good relationship with her brother and denies that she can live with her mother although does not state why. Pt plans to return to the [facility] upon discharge and states she is looking for a place to stay. Phone call to [facility] and they confirm pt did have [place] Medicaid but when she moved to [facility], the [place] Medicaid was cancelled and pt will need to reapply for [place] Medicaid and cancel [place] Medicaid. YANI informed pt of this and pt states she is planning on staying in [place]. YANI assisted pt in completing new Medicaid application and faxed it to [facility]. Pt made aware she will need to follow up with S. YANI inquired about ability to pay for needed prescriptions and pt states she has no money until she receives her SSI at the first of the month. Request for [facility] prescription program submitted. [facility] about [facility] and [employer] provided. Physician informed. YANI will remain available should further needs arise. GUME Khan
--- NOTE | 2017-10-14 14:56 | PCM.DC ---
- Discharge Diagnoses Current Active Problems: Current Active and Chronic Problems Chest pain (Acute) Hypertensive emergency (Acute) You will use the following diet at home:: No restrictions Your liquids should be the consistency of: Regular/Thin Discharge Activity: Return to Normal Activity Weight Bearing Status: Full weight bearing Allergies/Adverse Reactions: Allergies codeine Allergy (Verified 10/13/17 20:33) Chest tightness Penicillins [PCN] Allergy (Verified 10/13/17 20:33) Chest tightness Medications to take at Discharge Albuterol Inhaler [Ventolin Hfa] 1 puff INHALATION Q4H PRN PRN #1 inhaler 10/14/17 Amlodipine [Norvasc] 10 mg PO DAILY #30 tab 10/14/17 Hydrochlorothiazide [Hctz] 25 mg PO DAILY #30 tab 10/14/17 Lisinopril [Zestril] 20 mg PO BID #60 tab 10/14/17 Metoprolol Tartrate [Lopressor (beta genevieve)] 50 mg PO BID #60 tab 10/14/17 The following prescriptions were given: Albuterol Inhaler [Ventolin Hfa] 1 puff INHALATION Q4H PRN PRN #1 inhaler PRN Reason: Wheezing Amlodipine [Norvasc] 10 mg PO DAILY #30 tab Hydrochlorothiazide [Hctz] 25 mg PO DAILY #30 tab Lisinopril [Zestril] 20 mg PO BID #60 tab Metoprolol Tartrate [Lopressor (beta genevieve)] 50 mg PO BID #60 tab Primary Care Physician: Care Physician,No Primary [Primary Care Provider] - Please follow up with your Primary Care Physician in: [place] next week
--- NOTE | 2017-10-14 16:36 | CHAPLAIN ---
Type of Pastoral Visit _x__ Initial Visit ___ Follow-up Visit ___ On-call Visit ___ General Patient Visit ___ Spiritual Assessment ___ Family Conference ___ Bereavement ___ Rapid Response ___ Code Blue ___ Other (describe below) Pastoral Care Referral From _x__ Patient ___ Family ___ Nurse ___ Physician ___ Expedition Supervisor ___ Truss Builder ___ Other (describe below) Sacrament/Intervention _x__ Active listening ___ Anointing ___ Jewish ___ Bereavement ___ Communion ___ Gunjan exploration ___ _x__ Life review _x__ Prayer ___ Reconciliation ___ Sacrament of Sick _x__ Supportive presence ___ Wedding ___ Other (describe below) Pastoral Comments patient immediately goes into the account of her being in senior living and falsely accused; pt displays anger at police and at family members who have caused this mistake and lie; pt says that she needs her ; she also speaks of living at [facility] and how they just throw you out and don't help you; pt then tells this appliance technician that she has prayed to God but He does not do what she asks; pt says that her mother's trailer park will not allow her to live there with her mother; pt plan is to go back to [facility] until her last few allowed days are used up
--- NOTE | 2017-10-16 18:07 | PCM.DC.SUM ---
Discharge Date and Diagnosis Date of Admission: 10/13/17 Date of Discharge: 10/14/17 - Primary Discharge Diagnosis #1 hypertensive urgency #2 Dyspnea on exertion secondary to chronic uncontrolled hypertension #3 Indeterminate troponin elevation-etiology unknown #4 atrial septal defect #5 pulmonary hypertension #6 hyperglycemia #7 cognitive impairment-type unknown Hospital Course and Treatment Operations: None Procedures: 2-D Echocardiogram Summary of Care Provided: The patient is a 52 year old F seen in the emergency room at [facility] with a chief complaint of shortness of breath with activity. Evaluation in the emergency room revealed her blood pressure be highly elevated at 221/121, EKG showed LVH with authorization changes and T-wave inversions in 1 and aVL. Patient's troponin was intermediate. Patient's chest x-ray was felt to show vascular congestion per the x-ray report. Beta natruretic peptide was 196. Her O2 saturation was 95% on room air. Patient's blood sugar was 164. She was seen in consultation by cardiology who did not feel the patient had CHF however, recommended that the patient be placed in ICU and be placed on a nitroglycerin drip for blood pressure control along with IV Lasix, and ISABELLA inhibitor, and beta-genevieve. Patient was also placed on a calcium channel genevieve for blood pressure control. On 10/14/17, patient was seen and examined, her cardiac enzymes remained indeterminate, she did not require any supplemental oxygen, and her blood pressure had responded to treatment. Her nitroglycerin drip was stopped, she had an echocardiogram performed which showed an atrial septal defect and pulmonary hypertension but normal ejection fraction.. Patient's blood sugars remain slightly elevated throughout her hospital stay. Patient admitted that she had a cognitive impairment and she also admitted that in the past she had undergone a cardiac catheterization which she believed was done in [facility] but she states she was never told anything was abnormal. Patient had no insurance and no finances to pay for medications, medications were paid for by the hospital for 1 month and she was instructed to follow-up with the [facility] in [place] and Dr. Espinosa's office for further treatment. On 10/14/17, patient was seen and examined and felt been stable condition for discharge home, director of social media marketing saw the patient to help her with registration for Medicaid. Discharge Activity: Return to Normal Activity Weight Bearing Status: Full weight bearing Home Medications: Medications to take at Discharge Albuterol Inhaler [Ventolin Hfa] 1 puff INHALATION Q4H PRN PRN #1 inhaler 10/14/17 Amlodipine [Norvasc] 10 mg PO DAILY #30 tab 10/14/17 Hydrochlorothiazide [Hctz] 25 mg PO DAILY #30 tab 10/14/17 Lisinopril [Zestril] 20 mg PO BID #60 tab 10/14/17 Metoprolol Tartrate [Lopressor (beta genevieve)] 50 mg PO BID #60 tab 10/14/17 Following Prescrptions Were Given to Patient: Albuterol Inhaler [Ventolin Hfa] 1 puff INHALATION Q4H PRN PRN #1 inhaler PRN Reason: Wheezing Amlodipine [Norvasc] 10 mg PO DAILY #30 tab Hydrochlorothiazide [Hctz] 25 mg PO DAILY #30 tab Lisinopril [Zestril] 20 mg PO BID #60 tab Metoprolol Tartrate [Lopressor (beta genevieve)] 50 mg PO BID #60 tab Primary Care Physician: Care Physician,No Primary [Primary Care Provider] - Please follow up with your Primary Care Physician in: [place] next week Disposition: Home Minutes spent on discharge:: 32 Patient Condition:: Stable Medical Necessity - Tobacco Use Smoking Status: Current every day smoker Tobacco Use: Cigarettes Meaningful Use Info Meaningful Use Diagnoses (Choose all that apply): None applicable Code Visit Inpatient E&M: 06293 Disch Hosp
--- NOTE | 2017-10-16 18:17 | DS.PCM_ITS ---
Discharge Date and Diagnosis Date of Admission: 10/13/17 Date of Discharge: 10/14/17 - Primary Discharge Diagnosis #1 hypertensive urgency #2 Dyspnea on exertion secondary to chronic uncontrolled hypertension #3 Indeterminate troponin elevation-etiology unknown #4 atrial septal defect #5 pulmonary hypertension #6 hyperglycemia #7 cognitive impairment-type unknown Hospital Course and Treatment Operations: None Procedures: 2-D Echocardiogram Summary of Care Provided: The patient is a 52 year old F seen in the emergency room at [facility] with a chief complaint of shortness of breath with activity. Evaluation in the emergency room revealed her blood pressure be highly elevated at 221/121, EKG showed LVH with authorization changes and T-wave inversions in 1 and aVL. Patient's troponin was intermediate. Patient's chest x-ray was felt to show vascular congestion per the x-ray report. Beta natruretic peptide was 196. Her O2 saturation was 95% on room air. Patient's blood sugar was 164. She was seen in consultation by cardiology who did not feel the patient had CHF however, recommended that the patient be placed in ICU and be placed on a nitroglycerin drip for blood pressure control along with IV Lasix, and ISABELLA inhibitor, and beta-genevieve. Patient was also placed on a calcium channel genevieve for blood pressure control. On 10/14/17, patient was seen and examined, her cardiac enzymes remained indeterminate, she did not require any supplemental oxygen, and her blood pressure had responded to treatment. Her nitroglycerin drip was stopped, she had an echocardiogram performed which showed an atrial septal defect and pulmonary hypertension but normal ejection fraction.. Patient's blood sugars remain slightly elevated throughout her hospital stay. Patient admitted that she had a cognitive impairment and she also admitted that in the past she had undergone a cardiac catheterization which she believed was done in [facility] but she states she was never told anything was abnormal. Patient had no insurance and no finances to pay for medications, medications were paid for by the hospital for 1 month and she was instructed to follow-up with the [facility] in [place] and Dr. Espinosa's office for further treatment. On 10/14/17, patient was seen and examined and felt been stable condition for discharge home, social worker aide saw the patient to help her with registration for Medicaid. Discharge Activity: Return to Normal Activity Weight Bearing Status: Full weight bearing Home Medications: Medications to take at Discharge Albuterol Inhaler [Ventolin Hfa] 1 puff INHALATION Q4H PRN PRN #1 inhaler Amlodipine [Norvasc] 10 mg PO DAILY #30 tab 10/14/17 Hydrochlorothiazide [Hctz] 25 mg PO DAILY #30 tab 10/14/17 Lisinopril [Zestril] 20 mg PO BID #60 tab 10/14/17 Metoprolol Tartrate [Lopressor (beta genevieve)] 50 mg PO BID #60 tab 10/14/17 Following Prescrptions Were Given to Patient: Albuterol Inhaler [Ventolin Hfa] 1 puff INHALATION Q4H PRN PRN #1 inhaler PRN Reason: Wheezing Amlodipine [Norvasc] 10 mg PO DAILY #30 tab Hydrochlorothiazide [Hctz] 25 mg PO DAILY #30 tab Lisinopril [Zestril] 20 mg PO BID #60 tab Metoprolol Tartrate [Lopressor (beta genevieve)] 50 mg PO BID #60 tab Primary Care Physician: Care Physician,No Primary [Primary Care Provider] - Please follow up with your Primary Care Physician in: [place] next week Disposition: Home Minutes spent on discharge:: 32 Patient Condition:: Stable Medical Necessity - Tobacco Use Smoking Status: Current every day smoker Tobacco Use: Cigarettes Meaningful Use Info Meaningful Use Diagnoses (Choose all that apply): None applicable Code Visit Inpatient E&M: 18809 Disch Hosp
== END 2017-10-14 16:30 | disposition home or self-care (01) | DRG 305 ==
LOC: ED 17:25 → ICU 19:39
PROVIDERS: Admitting Provider Hospitalist; Emergency Provider Emergency Medicine; Visit Provider Internal Medicine
DX: I16.1 Hypertensive emergency (principal); I20.0 Unstable angina; F17.210 Nicotine dependence, cigarettes, uncomplicated; I11.0 Hypertensive heart disease with heart failure; I50.9 Heart failure, unspecified
CPT/HCPCS: 71045; 80048; 80061; 80076; 82962; 83880; 84443; 84484; 85025; 85027; 87641; 93005; 93306; 94640; 97802; 99284; 99406; A4216; J1940